=== PATIENT | male | born 1945 | race Hispanic/Latino ===

== ENCOUNTER → 2019-05-18 | Outpatient (CLI) | payer OTHER | END | disposition home or self-care (01) | LOC: RAH 13:00 | PROVIDERS: ATTEND Urology Pediatric Urology | DX: C61 Malignant neoplasm of prostate (principal); M47.812 Spondylosis without myelopathy or radiculopathy, cervical region | CPT/HCPCS: 78306; A9503 ==

== ENCOUNTER 2020-11-29 16:12 | Emergency (ER) | payer OTHER ==
[2020-11-29] MEDS ORDERED: CEFTRIAXONE SODIUM 1 GM ONE (18:10)
[2020-11-29 18:19] LABS: BASOPHILS % (AUTO) 0.4 % (0.0-5.0); EOSINOPHILS % (AUTO) 2.5 % (0.0-8.0); HEMATOCRIT 33.4 % (42-54); LYMPHOCYTES % (AUTO) 25.5 % (21.0-51.0); MEAN CORPUSCULAR HEMOGLOBIN 28.5 pg (27.0-33.0); MEAN CORPUSCULAR HGB CONC 35.3 g/dL (32.0-36.0); MEAN CORPUSCULAR VOLUME 80.7 fL (79-99); MONOCYTES % (AUTO) 11.8 % (3.0-13.0); NEUTROPHILS % (AUTO) 59.4 % (40.0-77.0); PLATELET COUNT (AUTO) 221 K/uL (130-400); RED BLOOD CELL COUNT(AUTO) 4.14 MIL/uL (4.50-6.20); RED CELL DISTRIBUTION WIDTH 12.1 % (11.0-15.5); WHITE BLOOD COUNT (AUTO) 7.1 K/uL (4.8-10.8)
[2020-11-29 18:30] LABS: INR 1.1 (0.85-1.15); PROTHROMBIN TIME 11.9 SEC (9.6-11.6)
[2020-11-29 18:31] LABS: PARTIAL THROMBOPLASTIN TIME 34.5 SEC (26.3-35.5)
[2020-11-29 18:34] LABS: ALBUMIN 4.1 g/dL (3.5-5.0); BILIRUBIN,TOTAL 0.6 mg/dL (0.2-1.0); CREATININE 1.2 mg/dL (0.5-1.5); POTASSIUM 3.4 mmol/L (3.5-5.1); TOTAL PROTEIN, SERUM 7.1 g/dL (6.0-8.3)
[2020-11-29] MEDS ORDERED: POTASSIUM BICARB/CIT AC 25 MEQ TABLET.EFF ONE (19:45)
== END 2020-11-29 19:52 | disposition home or self-care (01) ==
LOC: EDH 16:12
DX: R53.1 Weakness (principal); E87.6 Hypokalemia; Z20.822 Contact with and (suspected) exposure to COVID-19; E11.9 Type 2 diabetes mellitus without complications; I10 Essential (primary) hypertension
CPT/HCPCS: 36415; 70450; 80053; 82948; 84484; 85025; 85610; 85730; 87426; 93005; 96365; 99285; J0696; U0003

== ENCOUNTER 2020-11-30 18:17 | Inpatient (IN) | payer OTHER ==
[~2020-11-30] VITALS: Ht 162.6 cm; Wt 68.5 kg
[2020-11-30 19:27] LABS: BASOPHILS % (AUTO) 0.3 % (0.0-5.0); EOSINOPHILS % (AUTO) 1.3 % (0.0-8.0); HEMATOCRIT 32.8 % (42-54); LYMPHOCYTES % (AUTO) 12.9 % (21.0-51.0); MEAN CORPUSCULAR HEMOGLOBIN 29.7 pg (27.0-33.0); MEAN CORPUSCULAR HGB CONC 36.9 g/dL (32.0-36.0); MEAN CORPUSCULAR VOLUME 80.6 fL (79-99); MONOCYTES % (AUTO) 9.6 % (3.0-13.0); NEUTROPHILS % (AUTO) 75.6 % (40.0-77.0); PLATELET COUNT (AUTO) 211 K/uL (130-400); RED BLOOD CELL COUNT(AUTO) 4.07 MIL/uL (4.50-6.20); RED CELL DISTRIBUTION WIDTH 12.2 % (11.0-15.5); WHITE BLOOD COUNT (AUTO) 12.3 K/uL (4.8-10.8)
[2020-11-30 19:33] LABS: APPEARANCE,URINE Clear (CLEAR); BILIRUBIN,URINE Negative (NEGATIVE); COLOR,URINE Yellow (YELLOW); GLUCOSE, URINE (UA) Negative (NEGATIVE); KETONES,URINE Negative (NEGATIVE); LEUKOCYTE ESTERASE ,URINE Negative (NEGATIVE); NITRATE,URINE Negative (NEGATIVE); OCCULT BLOOD,URINE Negative (NEGATIVE); PROTEIN,URINE Negative (NEGATIVE); UROBILINOGEN,URINE 0.2 mg/dL (0.2-1.0)
[2020-11-30 19:49] LABS: ALBUMIN 4.1 g/dL (3.5-5.0); B-TYPE NATRIURETIC PEPTIDE 100 pg/mL (0-100); BILIRUBIN,TOTAL 0.4 mg/dL (0.2-1.0); CREATININE 1.2 mg/dL (0.5-1.5); POTASSIUM 3.6 mmol/L (3.5-5.1); TOTAL PROTEIN, SERUM 7.3 g/dL (6.0-8.3)
[2020-11-30] MEDS: 0.9%NACL 1000ML 1,000 ML IV SCH (20:30)
[2020-11-30] MEDS ORDERED: ONDANSETRON 4MG INJ IV PRN (20:30)
[2020-11-30] MEDS ORDERED: ACETAMINOPHEN 325 MG TAB PO PRN (20:30)
[2020-11-30] MEDS: FAMOTIDINE 20MG TAB PO SCH (21:00)
[2020-11-30] MEDS ORDERED: CYCLOBENZAPRINE HCL 10 MG TABLET ONE (21:14)
[2020-11-30] MEDS ORDERED: HYDROCODONE/ACETAMINOPHEN 10/325 MG TAB ONE (21:14)
[2020-11-30] MEDS ORDERED: FAMOTIDINE 20MG TAB ONE (21:39)
[2020-11-30 23:45] VITALS: BP 150/69
[2020-12-01] VITALS (7 sets, daily range): BP systolic 106–157; BP diastolic 46–82
[2020-12-01] MEDS ORDERED: BRIM155OS OD (04:14)
[2020-12-01] MEDS ORDERED: VITAD400 GT (04:14)
[2020-12-01] MEDS ORDERED: SIMV-43 PO (04:14)
[2020-12-01] MEDS ORDERED: TERA2CAP4 PO (04:14)
[2020-12-01] MEDS ORDERED: DORZ10DR10 OP (04:14)
[2020-12-01] MEDS ORDERED: METO25TA6 PO (04:14)
[2020-12-01] MEDS ORDERED: LOSA50TA2 PO (04:14)
[2020-12-01] MEDS ORDERED: CHLO25TA3 PO (04:14)
[2020-12-01] MEDS ORDERED: ASPI-1197 PO (04:14)
[2020-12-01] MEDS ORDERED: CARB-305 OP (04:14)
[2020-12-01] MEDS ORDERED: DOCU100C33 PO (04:14)
[2020-12-01] MEDS ORDERED: FERR325T29 PO (04:14)
[2020-12-01] MEDS ORDERED: ASCO500T10 PO (04:14)
[2020-12-01] MEDS ORDERED: IPRA6S NASAL (04:14)
[2020-12-01] MEDS ORDERED: LATA7.5D OP (04:14)
[2020-12-01 06:16] LABS: BASOPHILS % (AUTO) 0.4 % (0.0-5.0); EOSINOPHILS % (AUTO) 1.9 % (0.0-8.0); HEMATOCRIT 32.3 % (42-54); LYMPHOCYTES % (AUTO) 23.3 % (21.0-51.0); MEAN CORPUSCULAR HEMOGLOBIN 28.9 pg (27.0-33.0); MEAN CORPUSCULAR HGB CONC 35.6 g/dL (32.0-36.0); MEAN CORPUSCULAR VOLUME 81.2 fL (79-99); MONOCYTES % (AUTO) 12.3 % (3.0-13.0); NEUTROPHILS % (AUTO) 61.8 % (40.0-77.0); PLATELET COUNT (AUTO) 206 K/uL (130-400); RED BLOOD CELL COUNT(AUTO) 3.98 MIL/uL (4.50-6.20); RED CELL DISTRIBUTION WIDTH 12.2 % (11.0-15.5); WHITE BLOOD COUNT (AUTO) 7.3 K/uL (4.8-10.8)
[2020-12-01 06:38] LABS: ALBUMIN 3.8 g/dL (3.5-5.0); BILIRUBIN,TOTAL 0.7 mg/dL (0.2-1.0); MAGNESIUM 1.8 mg/dL (1.80-2.40); POTASSIUM 3.5 mmol/L (3.5-5.1); TOTAL PROTEIN, SERUM 6.8 g/dL (6.0-8.3)
[2020-12-01] MEDS ORDERED: POTASSIUM CHLORIDE 20MEQ/100ML 100 ML IV PRN (07:15)
[2020-12-01] MEDS ORDERED: METOPROLOL TARTRATE 25 MG TAB PO SCH (09:00)
[2020-12-01] MEDS: IPRATROPIUM BROMIDE NASAL SCH ×2 (09:00→21:00)
[2020-12-01] MEDS: CHOLECALCIFEROL 25 MCG PO SCH (09:00)
[2020-12-01] MEDS ORDERED: POTASSIUM CHLORIDE 10% ELIXIR 20 MEQ/15 ML UDCUP PO PRN (09:30)
[2020-12-01] MEDS ORDERED: KCL 20 MEQ ERTAB PO PRN (09:30)
[2020-12-01] MEDS ORDERED: MAGNESIUM 2GM PREMIX 50ML 50 ML IV PRN (09:30)
[2020-12-01] MEDS ORDERED: MAGNESIUM 2GM PREMIX 50ML 50 ML IV ONE (09:40)
[2020-12-01] MEDS ORDERED: KCL 20 MEQ ERTAB PO ONE (09:42)
[2020-12-01] MEDS: ASCORBIC ACID 500 MG TAB PO SCH ×2 (09:50→20:11)
[2020-12-01] MEDS: DOCUSATE SODIUM 100 MG CAP PO SCH ×2 (09:50→20:10)
[2020-12-01] MEDS: BRIMONIDINE TARTRATE 0.2% 5 ML BOTTLE OD SCH ×2 (09:51→20:14)
[2020-12-01] MEDS: ASPIRIN 81MG CHEW TAB PO SCH (09:51)
[2020-12-01] MEDS: DORZOLAMIDE HCL/TIMOLOL MALEAT DROPS 10 ML BOTTLE OP SCH ×2 (09:52→20:14)
[2020-12-01] MEDS: FERROUS SULFATE 325 MG TABLET.DR PO SCH ×3 (10:00→16:42)
[2020-12-01] MEDS: 0.9%NACL 1000ML 1,000 ML IV SCH (10:55)
[2020-12-01 11:34] LABS: POTASSIUM 3.8 mmol/L (3.5-5.1)
[2020-12-01 12:01] LABS: CREATININE,URINE RANDOM 13 mg/dL (30-135); SODIUM,URINE RANDOM 42 mmol/l (40-220)
[2020-12-01] MEDS ORDERED: SODIUM CHLORIDE 1,000 MG TAB ONE (12:06)
[2020-12-01] MEDS: LOSARTAN 50 MG TABLET PO SCH (12:13)
[2020-12-01] MEDS ORDERED: SODIUM CHLORIDE 1,000 MG TAB PO SCH (13:30)
[2020-12-01 14:38] LABS: CREATININE 1.1 mg/dL (0.5-1.5)
[2020-12-01 19:13] LABS: CREATININE 1.2 mg/dL (0.5-1.5); POTASSIUM 4.2 mmol/L (3.5-5.1)
[2020-12-01] MEDS: TERAZOSIN 2 MG CAPSULE PO SCH (20:10)
[2020-12-01] MEDS: FAMOTIDINE 20MG TAB PO SCH (20:11)
[2020-12-01] MEDS: SIMVASTATIN 20 MG TABLET PO SCH (20:11)
[2020-12-01] MEDS: LATANOPROST 2.5 ML DROPS OP SCH (21:00)
[2020-12-01 23:36] LABS: CREATININE 1.1 mg/dL (0.5-1.5); POTASSIUM 4.2 mmol/L (3.5-5.1)
[2020-12-02 03:00] VITALS: BP 106/56
[2020-12-02 03:45] LABS: CREATININE 1.1 mg/dL (0.5-1.5); THYROID STIMULATING HORMONE 1.32 uIU/mL (0.36-3.74)
[2020-12-02 07:31] LABS: POTASSIUM 4.1 mmol/L (3.5-5.1)
[2020-12-02 07:32] LABS: CREATININE 1.1 mg/dL (0.5-1.5)
[2020-12-02 08:00] VITALS: BP 160/77
[2020-12-02] MEDS: CHOLECALCIFEROL 25 MCG PO SCH (09:00)
[2020-12-02] MEDS: IPRATROPIUM BROMIDE NASAL SCH ×2 (09:00→19:44)
[2020-12-02] MEDS: LOSARTAN 50 MG TABLET PO SCH (09:40)
[2020-12-02] MEDS: DOCUSATE SODIUM 100 MG CAP PO SCH ×2 (09:40→19:43)
[2020-12-02] MEDS: ASCORBIC ACID 500 MG TAB PO SCH ×2 (09:41→19:43)
[2020-12-02] MEDS: FERROUS SULFATE 325 MG TABLET.DR PO SCH ×3 (09:41→16:01)
[2020-12-02] MEDS: ASPIRIN 81MG CHEW TAB PO SCH (09:41)
[2020-12-02] MEDS: BRIMONIDINE TARTRATE 0.2% 5 ML BOTTLE OD SCH ×2 (09:42→19:44)
[2020-12-02] MEDS: DORZOLAMIDE HCL/TIMOLOL MALEAT DROPS 10 ML BOTTLE OP SCH ×2 (09:42→19:44)
[2020-12-02 11:31] LABS: CREATININE 1.1 mg/dL (0.5-1.5); POTASSIUM 4.1 mmol/L (3.5-5.1)
[2020-12-02] MEDS ORDERED: SODIUM CHLORIDE 1,000 MG TAB PO SCH (12:18)
[2020-12-02 13:28] VITALS: BP 127/59
[2020-12-02 15:01] LABS: CREATININE 1.2 mg/dL (0.5-1.5); POTASSIUM 4.8 mmol/L (3.5-5.1)
[2020-12-02 16:00] VITALS: BP 163/85
[2020-12-02] MEDS: ACETAMINOPHEN 325 MG TAB PO PRN (18:30)
[2020-12-02 18:51] LABS: CREATININE 1.5 mg/dL (0.5-1.5); POTASSIUM 4.3 mmol/L (3.5-5.1)
[2020-12-02] MEDS: FAMOTIDINE 20MG TAB PO SCH (19:43)
[2020-12-02] MEDS: TERAZOSIN 2 MG CAPSULE PO SCH (19:43)
[2020-12-02] MEDS: SIMVASTATIN 20 MG TABLET PO SCH (19:43)
[2020-12-02] MEDS: LATANOPROST 2.5 ML DROPS OP SCH (19:44)
[2020-12-02 21:27] VITALS: BP 164/99
[2020-12-02 23:28] LABS: CREATININE 1.3 mg/dL (0.5-1.5); POTASSIUM 4.2 mmol/L (3.5-5.1)
[2020-12-03] MEDS ORDERED: CLONIDINE HCL 0.1 MG TABLET PO ONE
[2020-12-03] MEDS ORDERED: CLONIDINE HCL 0.1 MG TABLET ONE (00:18)
[2020-12-03 04:53] LABS: BASOPHILS % (AUTO) 0.5 % (0.0-5.0); EOSINOPHILS % (AUTO) 1.4 % (0.0-8.0); HEMATOCRIT 33.8 % (42-54); LYMPHOCYTES % (AUTO) 18.4 % (21.0-51.0); MEAN CORPUSCULAR HEMOGLOBIN 28.9 pg (27.0-33.0); MEAN CORPUSCULAR HGB CONC 34.3 g/dL (32.0-36.0); MEAN CORPUSCULAR VOLUME 84.1 fL (79-99); MONOCYTES % (AUTO) 9.5 % (3.0-13.0); NEUTROPHILS % (AUTO) 69.8 % (40.0-77.0); PLATELET COUNT (AUTO) 213 K/uL (130-400); RED BLOOD CELL COUNT(AUTO) 4.02 MIL/uL (4.50-6.20); RED CELL DISTRIBUTION WIDTH 13.2 % (11.0-15.5); WHITE BLOOD COUNT (AUTO) 9.1 K/uL (4.8-10.8)
[2020-12-03 05:00] LABS: CREATININE 1.2 mg/dL (0.5-1.5); POTASSIUM 4.1 mmol/L (3.5-5.1)
[2020-12-03 05:18] VITALS: BP 112/65
[2020-12-03 06:30] LABS: CREATININE 1.2 mg/dL (0.5-1.5); POTASSIUM 4.2 mmol/L (3.5-5.1)
[2020-12-03 08:00] VITALS: BP 111/60
[2020-12-03] MEDS ORDERED: LOSA100T58 PO (08:04)
[2020-12-03] MEDS: CHOLECALCIFEROL 25 MCG PO SCH (08:32)
[2020-12-03] MEDS: IPRATROPIUM BROMIDE NASAL SCH ×2 (08:32→22:06)
[2020-12-03] MEDS: ASCORBIC ACID 500 MG TAB PO SCH ×2 (08:42→21:00)
[2020-12-03] MEDS: FERROUS SULFATE 325 MG TABLET.DR PO SCH ×3 (08:42→16:30)
[2020-12-03] MEDS: DOCUSATE SODIUM 100 MG CAP PO SCH ×2 (08:42→21:00)
[2020-12-03] MEDS: ASPIRIN 81MG CHEW TAB PO SCH (08:42)
[2020-12-03] MEDS: LOSARTAN 50 MG TABLET PO SCH (08:43)
[2020-12-03] MEDS: DORZOLAMIDE HCL/TIMOLOL MALEAT DROPS 10 ML BOTTLE OP SCH ×2 (08:44→22:06)
[2020-12-03] MEDS: BRIMONIDINE TARTRATE 0.2% 5 ML BOTTLE OD SCH ×2 (08:45→22:06)
[2020-12-03] MEDS ORDERED: SODIUM CHLORIDE 1,000 MG TAB PO SCH (09:30)
[2020-12-03 12:00] VITALS: BP 153/79
[2020-12-03 16:00] VITALS: BP 166/79
[2020-12-03 20:12] VITALS: BP 179/76
[2020-12-03] MEDS: SIMVASTATIN 20 MG TABLET PO SCH (21:00)
[2020-12-03] MEDS: FAMOTIDINE 20MG TAB PO SCH (21:00)
[2020-12-03] MEDS: TERAZOSIN 2 MG CAPSULE PO SCH (21:00)
[2020-12-03] MEDS: LATANOPROST 2.5 ML DROPS OP SCH (22:06)
[2020-12-03 23:50] VITALS: BP 169/87
[2020-12-04 04:21] LABS: BASOPHILS % (AUTO) 0.6 % (0.0-5.0); EOSINOPHILS % (AUTO) 2.1 % (0.0-8.0); HEMATOCRIT 31.7 % (42-54); LYMPHOCYTES % (AUTO) 21.6 % (21.0-51.0); MEAN CORPUSCULAR HEMOGLOBIN 29.8 pg (27.0-33.0); MONOCYTES % (AUTO) 8.6 % (3.0-13.0); NEUTROPHILS % (AUTO) 66.8 % (40.0-77.0); PLATELET COUNT (AUTO) 215 K/uL (130-400); RED BLOOD CELL COUNT(AUTO) 3.82 MIL/uL (4.50-6.20); RED CELL DISTRIBUTION WIDTH 13.4 % (11.0-15.5); WHITE BLOOD COUNT (AUTO) 8.8 K/uL (4.8-10.8)
[2020-12-04 04:33] LABS: CREATININE 1.1 mg/dL (0.5-1.5); POTASSIUM 4.1 mmol/L (3.5-5.1)
[2020-12-04] MEDS: IPRATROPIUM BROMIDE NASAL SCH ×2 (07:26→20:22)
[2020-12-04] MEDS: CHOLECALCIFEROL 25 MCG PO SCH (07:26)
[2020-12-04 08:00] VITALS: BP 135/77
[2020-12-04] MEDS: FERROUS SULFATE 325 MG TABLET.DR PO SCH ×3 (08:21→17:36)
[2020-12-04] MEDS: LOSARTAN 50 MG TABLET PO SCH (08:21)
[2020-12-04] MEDS: DOCUSATE SODIUM 100 MG CAP PO SCH ×2 (08:21→20:21)
[2020-12-04] MEDS: ASCORBIC ACID 500 MG TAB PO SCH ×2 (08:21→20:21)
[2020-12-04] MEDS: BRIMONIDINE TARTRATE 0.2% 5 ML BOTTLE OD SCH ×2 (08:22→20:23)
[2020-12-04] MEDS: ASPIRIN 81MG CHEW TAB PO SCH (08:22)
[2020-12-04] MEDS: DORZOLAMIDE HCL/TIMOLOL MALEAT DROPS 10 ML BOTTLE OP SCH ×2 (08:22→20:24)
[2020-12-04] MEDS ORDERED: SODIUM CHLORIDE 1,000 MG TAB PO SCH (09:30)
[2020-12-04 12:00] VITALS: BP 145/72
[2020-12-04 16:00] VITALS: BP 156/78
[2020-12-04 19:22] VITALS: BP 140/75
[2020-12-04] MEDS: TERAZOSIN 2 MG CAPSULE PO SCH (20:21)
[2020-12-04] MEDS: SIMVASTATIN 20 MG TABLET PO SCH (20:21)
[2020-12-04] MEDS: FAMOTIDINE 20MG TAB PO SCH (20:24)
[2020-12-04] MEDS: LATANOPROST 2.5 ML DROPS OP SCH (20:24)
[2020-12-04 22:53] VITALS: BP 143/80
[2020-12-04] MEDS: ACETAMINOPHEN 325 MG TAB PO PRN (23:12)
[2020-12-05 04:08] LABS: BASOPHILS % (AUTO) 0.7 % (0.0-5.0); EOSINOPHILS % (AUTO) 3.6 % (0.0-8.0); HEMATOCRIT 32.2 % (42-54); LYMPHOCYTES % (AUTO) 27.5 % (21.0-51.0); MEAN CORPUSCULAR HEMOGLOBIN 28.9 pg (27.0-33.0); MEAN CORPUSCULAR HGB CONC 34.5 g/dL (32.0-36.0); MEAN CORPUSCULAR VOLUME 83.9 fL (79-99); MONOCYTES % (AUTO) 10.1 % (3.0-13.0); NEUTROPHILS % (AUTO) 57.6 % (40.0-77.0); PLATELET COUNT (AUTO) 217 K/uL (130-400); RED BLOOD CELL COUNT(AUTO) 3.84 MIL/uL (4.50-6.20); RED CELL DISTRIBUTION WIDTH 13.3 % (11.0-15.5); WHITE BLOOD COUNT (AUTO) 7.5 K/uL (4.8-10.8)
[2020-12-05 04:12] LABS: CREATININE 1.2 mg/dL (0.5-1.5); POTASSIUM 4.3 mmol/L (3.5-5.1)
[2020-12-05 05:28] VITALS: BP 124/65
[2020-12-05 08:00] VITALS: BP 133/52
[2020-12-05] MEDS: IPRATROPIUM BROMIDE NASAL SCH ×2 (09:00→21:00)
[2020-12-05] MEDS: CHOLECALCIFEROL 25 MCG PO SCH (09:00)
[2020-12-05 11:21] VITALS: BP 166/95
[2020-12-05] MEDS: FERROUS SULFATE 325 MG TABLET.DR PO SCH ×3 (12:00→17:38)
[2020-12-05] MEDS: ASPIRIN 81MG CHEW TAB PO SCH (12:12)
[2020-12-05] MEDS: LOSARTAN 50 MG TABLET PO SCH (12:13)
[2020-12-05] MEDS: DORZOLAMIDE HCL/TIMOLOL MALEAT DROPS 10 ML BOTTLE OP SCH ×2 (12:13→21:00)
[2020-12-05] MEDS: ASCORBIC ACID 500 MG TAB PO SCH ×2 (12:14→21:04)
[2020-12-05] MEDS: DOCUSATE SODIUM 100 MG CAP PO SCH ×2 (12:14→21:03)
[2020-12-05] MEDS: SODIUM CHLORIDE 1,000 MG TAB PO SCH (12:14)
[2020-12-05] MEDS: BRIMONIDINE TARTRATE 0.2% 5 ML BOTTLE OD SCH ×2 (12:15→21:00)
[2020-12-05] MEDS ORDERED: HYDROXYZINE 25 MG TABLET PO PRN (16:00)
[2020-12-05 16:10] VITALS: BP 154/78
[2020-12-05] MEDS ORDERED: HYDRALAZINE 20MG/ML VIAL IV PRN (16:45)
[2020-12-05] MEDS: MEMANTINE HCL 5 MG TABLET PO SCH (17:38)
[2020-12-05] MEDS: FLUOXETINE HCL 10 MG CAPSULE PO SCH (17:38)
[2020-12-05 20:06] VITALS: BP 159/93
[2020-12-05] MEDS: FAMOTIDINE 20MG TAB PO SCH ×2 (21:00→21:03)
[2020-12-05] MEDS: LATANOPROST 2.5 ML DROPS OP SCH (21:00)
[2020-12-05] MEDS: SIMVASTATIN 20 MG TABLET PO SCH (21:03)
[2020-12-05] MEDS: TRAZODONE HCL 50 MG TAB PO SCH (21:04)
[2020-12-05] MEDS: TERAZOSIN 2 MG CAPSULE PO SCH (21:04)
[2020-12-05 23:52] LABS: ALBUMIN 3.8 g/dL (3.5-5.0); BILIRUBIN,TOTAL 0.4 mg/dL (0.2-1.0)
[2020-12-05 23:53] VITALS: BP 146/66
[2020-12-06] MEDS: HYDROXYZINE 25 MG TABLET PO SCH ×4 (02:05→21:20)
[2020-12-06 03:43] VITALS: BP 125/65
[2020-12-06 04:52] LABS: BASOPHILS % (AUTO) 0.6 % (0.0-5.0); EOSINOPHILS % (AUTO) 2.3 % (0.0-8.0); HEMATOCRIT 32.7 % (42-54); LYMPHOCYTES % (AUTO) 24.8 % (21.0-51.0); MEAN CORPUSCULAR HEMOGLOBIN 28.9 pg (27.0-33.0); MEAN CORPUSCULAR HGB CONC 34.6 g/dL (32.0-36.0); MEAN CORPUSCULAR VOLUME 83.6 fL (79-99); MONOCYTES % (AUTO) 9.4 % (3.0-13.0); NEUTROPHILS % (AUTO) 62.5 % (40.0-77.0); PLATELET COUNT (AUTO) 227 K/uL (130-400); RED BLOOD CELL COUNT(AUTO) 3.91 MIL/uL (4.50-6.20); RED CELL DISTRIBUTION WIDTH 13.3 % (11.0-15.5); WHITE BLOOD COUNT (AUTO) 6.8 K/uL (4.8-10.8)
[2020-12-06 05:05] LABS: CREATININE 1.1 mg/dL (0.5-1.5)
[2020-12-06 07:57] VITALS: BP 141/83
[2020-12-06] MEDS: IPRATROPIUM BROMIDE NASAL SCH ×2 (09:00→21:19)
[2020-12-06] MEDS: CHOLECALCIFEROL 25 MCG PO SCH (09:00)
[2020-12-06] MEDS ORDERED: HALOPERIDOL INJ 5 MG/ML VIAL ONE (09:20)
[2020-12-06] MEDS ORDERED: LORAZEPAM 2 MG/ML 1 ML VIAL IVP SCH (09:30)
[2020-12-06] MEDS: HALOPERIDOL INJ 5 MG/ML VIAL IM SCH (09:38)
[2020-12-06 11:30] VITALS: BP 102/56
[2020-12-06] MEDS: FERROUS SULFATE 325 MG TABLET.DR PO SCH ×3 (12:00→16:22)
[2020-12-06 15:48] VITALS: BP 156/67
[2020-12-06] MEDS: ASPIRIN 81MG CHEW TAB PO SCH (15:54)
[2020-12-06] MEDS: LOSARTAN 50 MG TABLET PO SCH (15:54)
[2020-12-06] MEDS: DOCUSATE SODIUM 100 MG CAP PO SCH ×2 (15:54→21:20)
[2020-12-06] MEDS: SODIUM CHLORIDE 1,000 MG TAB PO SCH (15:54)
[2020-12-06] MEDS: MEMANTINE HCL 5 MG TABLET PO SCH (15:55)
[2020-12-06] MEDS: FLUOXETINE HCL 10 MG CAPSULE PO SCH (15:55)
[2020-12-06] MEDS: ASCORBIC ACID 500 MG TAB PO SCH ×2 (15:55→21:20)
[2020-12-06] MEDS: BRIMONIDINE TARTRATE 0.2% 5 ML BOTTLE OD SCH ×2 (15:56→21:19)
[2020-12-06] MEDS: DORZOLAMIDE HCL/TIMOLOL MALEAT DROPS 10 ML BOTTLE OP SCH ×2 (15:56→21:19)
[2020-12-06 20:02] VITALS: BP 123/55
[2020-12-06] MEDS: FAMOTIDINE 20MG TAB PO SCH (21:00)
[2020-12-06] MEDS: LATANOPROST 2.5 ML DROPS OP SCH (21:19)
[2020-12-06] MEDS: TRAZODONE HCL 50 MG TAB PO SCH (21:20)
[2020-12-06] MEDS: TERAZOSIN 2 MG CAPSULE PO SCH (21:20)
[2020-12-06] MEDS: SIMVASTATIN 20 MG TABLET PO SCH (21:20)
[2020-12-06 23:47] VITALS: BP 127/63
[2020-12-07 04:23] VITALS: BP 119/65
[2020-12-07 05:17] LABS: BASOPHILS % (AUTO) 0.5 % (0.0-5.0); EOSINOPHILS % (AUTO) 2.7 % (0.0-8.0); HEMATOCRIT 35.2 % (42-54); LYMPHOCYTES % (AUTO) 19.7 % (21.0-51.0); MEAN CORPUSCULAR HGB CONC 34.4 g/dL (32.0-36.0); MEAN CORPUSCULAR VOLUME 84.4 fL (79-99); MONOCYTES % (AUTO) 8.7 % (3.0-13.0); PLATELET COUNT (AUTO) 240 K/uL (130-400); RED BLOOD CELL COUNT(AUTO) 4.17 MIL/uL (4.50-6.20); RED CELL DISTRIBUTION WIDTH 13.2 % (11.0-15.5); WHITE BLOOD COUNT (AUTO) 7.9 K/uL (4.8-10.8)
[2020-12-07 05:26] LABS: CREATININE 1.1 mg/dL (0.5-1.5); POTASSIUM 4.2 mmol/L (3.5-5.1)
[2020-12-07] MEDS: SODIUM CHLORIDE 1,000 MG TAB PO SCH (08:38)
[2020-12-07] MEDS: FLUOXETINE HCL 10 MG CAPSULE PO SCH (08:39)
[2020-12-07] MEDS: ASCORBIC ACID 500 MG TAB PO SCH (08:39)
[2020-12-07] MEDS: MEMANTINE HCL 5 MG TABLET PO SCH (08:39)
[2020-12-07] MEDS: LOSARTAN 50 MG TABLET PO SCH (08:39)
[2020-12-07] MEDS: ASPIRIN 81MG CHEW TAB PO SCH (08:39)
[2020-12-07] MEDS: FERROUS SULFATE 325 MG TABLET.DR PO SCH ×3 (08:39→16:11)
[2020-12-07] MEDS: DOCUSATE SODIUM 100 MG CAP PO SCH (08:39)
[2020-12-07] MEDS: HYDROXYZINE 25 MG TABLET PO SCH ×2 (08:39→14:57)
[2020-12-07] MEDS: CHOLECALCIFEROL 25 MCG PO SCH (08:40)
[2020-12-07] MEDS: HALOPERIDOL INJ 5 MG/ML VIAL IM SCH (08:40)
[2020-12-07] MEDS: DORZOLAMIDE HCL/TIMOLOL MALEAT DROPS 10 ML BOTTLE OP SCH (08:46)
[2020-12-07] MEDS: BRIMONIDINE TARTRATE 0.2% 5 ML BOTTLE OD SCH (08:46)
[2020-12-07] MEDS: IPRATROPIUM BROMIDE NASAL SCH (08:46)
[2020-12-07 09:28] VITALS: BP 134/72
[2020-12-07 11:00] VITALS: BP 121/74
[2020-12-07] MEDS ORDERED: SODI100037 PO (13:37)
[2020-12-07] MEDS ORDERED: TRAZ-253 PO (14:10)
[2020-12-07] MEDS ORDERED: HYDR-3421 PO (14:10)
[2020-12-07] MEDS ORDERED: FLUO10CA21 PO (14:10)
[2020-12-07 16:00] VITALS: BP 135/61
== END 2020-12-07 19:15 | disposition home or self-care (01) | DRG 643 ==
LOC: EDH 18:17 → EDHIP 20:30 → 3CH 22:44 → 4DH 12-01 13:29
PROVIDERS: ADMIT Family Medicine; ATTEND Family Medicine
DX: E22.2 Syndrome of inappropriate secretion of antidiuretic hormone (principal); G92 Toxic encephalopathy; N17.9 Acute kidney failure, unspecified; G45.9 Transient cerebral ischemic attack, unspecified; R00.8 Other abnormalities of heart beat; I25.10 Atherosclerotic heart disease of native coronary artery without angina pectoris; E11.9 Type 2 diabetes mellitus without complications; I49.3 Ventricular premature depolarization; I50.9 Heart failure, unspecified; I11.0 Hypertensive heart disease with heart failure; E78.5 Hyperlipidemia, unspecified; Z20.822 Contact with and (suspected) exposure to COVID-19; F03.90 Unspecified dementia, unspecified severity, without behavioral disturbance, psychotic disturbance, mood disturbance, and anxiety; F32.9 Major depressive disorder, single episode, unspecified; K64.8 Other hemorrhoids; F41.9 Anxiety disorder, unspecified; E87.8 Other disorders of electrolyte and fluid balance, not elsewhere classified; Z79.899 Other long term (current) drug therapy; Z85.46 Personal history of malignant neoplasm of prostate
CPT/HCPCS: 36415; 70450; 70551; 71045; 80048; 80053; 80061; 81003; 82533; 82570; 82948; 83735; 83880; 83930; 83935; 84295; 84300; 84443; 84484; 84540; 85025; 85610; 85730; 87426; 93005; 93306; 93356; 96365; 97039; G0378; J0696; J1630; J2060; J3475; U0003

== ENCOUNTER 2020-12-11 20:51 | Emergency (ER) | payer OTHER ==
[~2020-12-11 20:51] MED LIST: ASCO500T10 PO; ASPI-1197 PO; BRIM155OS OD; CARB-305 OP; DOCU100C33 PO; DORZ10DR10 OP; FERR325T29 PO; FLUO10CA21 PO; HYDR-3421 PO; IPRA6S NASAL; LATA7.5D OP; LOSA100T58 PO; METO25TA6 PO; SIMV-43 PO; SODI100037 PO; TERA2CAP4 PO; TRAZ-253 PO; VITAD400 GT
[2020-12-11 21:36] LABS: APPEARANCE,URINE Clear (CLEAR); BILIRUBIN,URINE Negative (NEGATIVE); COLOR,URINE Yellow (YELLOW); GLUCOSE, URINE (UA) Negative (NEGATIVE); KETONES,URINE Negative (NEGATIVE); LEUKOCYTE ESTERASE ,URINE Negative (NEGATIVE); NITRATE,URINE Negative (NEGATIVE); OCCULT BLOOD,URINE Negative (NEGATIVE); PROTEIN,URINE Negative (NEGATIVE)
[2020-12-11 22:13] LABS: BASOPHILS % (AUTO) 0.5 % (0.0-5.0); EOSINOPHILS % (AUTO) 3.9 % (0.0-8.0); LYMPHOCYTES % (AUTO) 20.7 % (21.0-51.0); MEAN CORPUSCULAR HEMOGLOBIN 29.9 pg (27.0-33.0); MEAN CORPUSCULAR HGB CONC 35.2 g/dL (32.0-36.0); MEAN CORPUSCULAR VOLUME 85.2 fL (79-99); NEUTROPHILS % (AUTO) 62.6 % (40.0-77.0); PLATELET COUNT (AUTO) 226 K/uL (130-400); RED BLOOD CELL COUNT(AUTO) 3.64 MIL/uL (4.50-6.20); RED CELL DISTRIBUTION WIDTH 13.7 % (11.0-15.5); WHITE BLOOD COUNT (AUTO) 7.6 K/uL (4.8-10.8)
[2020-12-11 22:24] LABS: CREATININE 1.2 mg/dL (0.5-1.5); POTASSIUM 3.8 mmol/L (3.5-5.1)
[2020-12-11 22:28] LABS: ALBUMIN 3.8 g/dL (3.5-5.0); BILIRUBIN,TOTAL 0.3 mg/dL (0.2-1.0); TOTAL PROTEIN, SERUM 6.7 g/dL (6.0-8.3)
== END 2020-12-12 01:24 | disposition home or self-care (01) ==
LOC: EDH 20:51
DX: F41.9 Anxiety disorder, unspecified (principal); I50.9 Heart failure, unspecified; E11.9 Type 2 diabetes mellitus without complications; I11.0 Hypertensive heart disease with heart failure; Z90.49 Acquired absence of other specified parts of digestive tract
CPT/HCPCS: 36415; 71045; 80053; 81003; 84484; 85025; 93005

== ENCOUNTER → 2024-10-31 | Outpatient (CLI) | payer OTHER ==
[~2024-10-31] MED LIST changes: -LOSA100T58 PO; +LOSA100T59 PO
[2024-10-31 16:40] LABS: CREATININE 1.5 mg/dL (0.5-1.3); MAGNESIUM 2.2 mg/dL (1.80-2.40); POTASSIUM 4.5 mmol/L (3.5-5.1); THYROID STIMULATING HORMONE 1.9 uIU/mL (0.36-3.74)
== END | disposition home or self-care (01) ==
LOC: LAB 11:39
PROVIDERS: ATTEND Internal Medicine Cardiovascular Disease
DX: I10 Essential (primary) hypertension (principal); R53.83 Other fatigue
CPT/HCPCS: 36415; 80048; 83735; 84443

== ENCOUNTER → 2024-12-08 | Outpatient (CLI) | payer OTHER ==
--- NOTE | 2024-12-09 08:56 | HMCSR ---
APPROVED REPORT EXAM: Two-dimensional and M-mode echocardiogram with Doppler and color Doppler. INDICATION ICD: Ventricular tachycardia I47.2 2D Dimensions RVDd4.5 cmLVEF(%)30.1 (>50%)LVED Vol(simp.)121.0 mL IVSd1.0 (0.7-1.1cm)FS(%)14 %LVES Vol(simp.)75.0 mL LVDd5.7 (3.8-5.6cm)Ao Root(2D)3.2 (2.0-3.7cm)LVEF(%, simp.)38 % PWd0.9 (0.7-1.1cm)LVOT diam2.1 (1.8-2.4cm)LA ESV INDEX (BP)42.87 mL/m2 LVDs4.9 (2.5-4.0cm)IVC diam1.7 cm Aortic Valve AoV Vmax1.1 m/Cici Peak GR4.7 mmHgLVOT Vmax0.8 m/s AoV VTI0.3 mAo Mean GR2.6 mmHgLVOT VTI0.18 m TANYA (VMAX)2.6 cm2Al P1/2T938 msAVA (VTI) 2.6 cm2 Mitral Valve MV E Vmax47.7 cm/sDECEL Gzjp351 ms MV A Vmax59.5 cm/s E/A ratio0.8 MR Max PG38 mmHg TDI E/E' Medial6.4E/E' Lateral6.9 Pulmonary Valve PV Vmax0.7 m/sPV VTI0.17 mPV Mean GR1 mmHg PV Peak GR2.3 mmHgPI End Beverly. Fidencio 0.8 cm/s Tricuspid Valve TR Vmax2.5 m/sRAP (EST) 3 ksDnSGSE89.1 mmHg TR Peak GR25.1 mmHg Left Ventricle The left ventricle is mildly dilated. Apical hypokinesis. There is normal left ventricular wall thick ness. LVEF is 35-40%. Stage I diastolic dysfunction. Right Ventricle The right ventricle is dilated. The right ventricular systolic function is normal. Atria The left atrium is mildly dilated. The right atrium is dilated. Aortic Valve Aortic valve is trileaflet. Aortic valve leaflets are sclerotic but open well. Trace aortic regurgita tion. There is no aortic valvular stenosis. Mitral Valve Mitral annular calcification is mild. Mitral valve leaflets are sclerotic but open well. Mitral regur gitation is trace to mild. There is no mitral valve stenosis. Tricuspid Valve The tricuspid valve leaflets appear normal. There is mild to moderate tricuspid regurgitation. Pulmonic Valve The pulmonic valve leaflets appear normal. There is trace valvular regurgitation. Great Vessels The aortic root is normal in size. The IVC is normal in size and collapses >50% with inspiration. Pericardium No pericardial effusion. Conclusion The left ventricle is mildly dilated. LVEF is 35-40%. Stage I diastolic dysfunction. Trace aortic regurgitation. Mitral regurgitation is trace to mild. There is mild to moderate tricuspid regurgitation.
== END | disposition home or self-care (01) ==
LOC: SHCH 09:12
PROVIDERS: ATTEND Internal Medicine Cardiovascular Disease
DX: I08.3 Combined rheumatic disorders of mitral, aortic and tricuspid valves (principal); I47.20 Ventricular tachycardia, unspecified
CPT/HCPCS: 93306

== ENCOUNTER → 2024-12-12 | Outpatient (CLI) | payer OTHER ==
[2024-12-12] MEDS: REGADENOSON 0.4 MG/5 ML PF SYG IVP ONE (13:14)
--- NOTE | 2024-12-13 08:31 | HMCSR ---
APPROVED REPORT Height: 5 ft 2in Weight: 149 lbs TEST INDICATIONS CAD The imaging protocol used to acquire images was Rest Tc-99m/stress Tc-99m 1 day Consent: The procedure was explained and understood by the patient. Informerd consent was witnessed Johanny Jin RN First, low dose rest was performed then high dose stress. RESTING DATA: The resting ekg shows: NSR, PVC's, Septal infarct, CRBBB Rest SPECT myocardial perfusion imaging was performed in supine position 83 minutes following the int ravenous injection of 11.2 mCi of Tc-99 Sestamibi. Time of rest injection: 08:20: Date: 12/12/2024 Time of rest imagin:43: Date: 12/12/2024 PHARMACOLOGIC STRESS: Pharmacologic stress test was performed by injecting regadenoson 0.4 mg IV push followed by the intra venous injection of , Se mCi of Tc-99 Sestamibi. Time of stress injection: 09:58: Date: 12/12/2024 Time of stress imagin:28: Date: 12/12/2024 Heart Rate at time of stress injection: 49 bpm. Gated Stress SPECT was performed 90 minutes after stress injection. The images were gated to evaluate regional wall motion and calculate left ventricular ejection fracti on. STRESS DETAILS Reason for Termination: Infusion complete Stress Symptoms: No chest pain or symptoms Max HR Achieved: 67 bpm % of APMHR Achieved: 47 Max Blood Pressure: 161/73 mmHg Stress ECG: NSR Conclusion Apical infarct No ischemia LV ejection fraction 365 Apical akinesis Normal LV size at rest and stress No increased lung uptake
== END | disposition home or self-care (01) ==
LOC: SHCH 07:47
PROVIDERS: ATTEND Internal Medicine Cardiovascular Disease
DX: I49.3 Ventricular premature depolarization (principal); I45.10 Unspecified right bundle-branch block; I21.9 Acute myocardial infarction, unspecified; I25.10 Atherosclerotic heart disease of native coronary artery without angina pectoris; I47.20 Ventricular tachycardia, unspecified
CPT/HCPCS: 78452; 93017; J2785; A9500 ×2